=== PATIENT | female | born 1985 | race African-American/Black ===

== ENCOUNTER 2018-03-13 18:11 | Inpatient (IN) ==
[2018-03-13 19:22] LABS: Basophils % 0.3 % (0.0-0.8); Eosinophils % 0.1 % (0.00-10.9); Hematocrit 34.7 VOL% (35.7-47.0); Immature Granulocytes % 0.3 %; Immature Granulocytes Absolute 0.04 #; Lymphocytes # 2.2 10*3/uL (1.4-4.0); Lymphocytes % 18.7 % (21.3-54.2); Mean Corpuscular HGB Conc 31.7 GM/DL (32-36); Mean Corpuscular Hemoglobin 28 PG (27-34); Mean Platelet Volume 9.7 FL (9.6-12.0); Monocytes # 0.8 10*3/uL (0.11-0.8); Monocytes % 6.8 % (1.7-12.7); Neutrophils # 8.5 10*3/uL (1.4-7.4); Neutrophils % 73.8 % (38.7-73.9); Platelet Count 578 T/CUMM (130-400); Red Blood Count 3.99 MC/CUMM (3.8-5.5); Red Cell Distribution Width 13.3 % (9.3-17.3); White Blood Count 11.5 T/CUMM (4-12)
[2018-03-13 19:40] LABS: Alanine Aminotransferase < 9 U/L (13-56); Albumin 3.1 G/DL (3.4-5.0); Alkaline Phosphatase 92 U/L (45-117); Aspartate Amino Transferase 14 U/L (0-37); Blood Urea Nitrogen 6 MG/DL (7-18); Calcium 8.8 MG/DL (8.5-10.1); Glucose 98 MG/DL (74-106); Osmolality,Calculated 272.7 MOS/KG (273-304); Potassium 3.2 MMOL/L (3.5-5.1); Sodium 138 MMOL/L (136-145); Total Protein 7.8 G/DL (6.4-8.3)
[2018-03-13] MEDS ORDERED: ONDANSETRON 4 MG/2 ML VIAL IV PRN (20:01)
[2018-03-13] MEDS: LACTATED RINGERS 1,000 ML IV SCH (20:05)
[2018-03-13] MEDS ORDERED: hydrALAZINE 20 MG/1 ML VIAL IV ONE ×2 (20:05→20:16)
[2018-03-13] MEDS ORDERED: ACETAMINOPHEN/CODEINE 300-30 MG TABLET PO PRN (20:07)
[2018-03-13] MEDS ORDERED: IBUPROFEN 800 MG TABLET PO PRN (20:09)
[2018-03-13] MEDS: ACETAMINOPHEN/CODEINE 300-30 MG TABLET PO PRN (20:24)
[2018-03-13] MEDS: MEPERIDINE 50 MG/1 ML VIAL IV PRN (21:18)
[2018-03-14] MEDS: CLINDAMYCIN INJ 600 MG in PREMIX 1 EACH IV SCH ×3 (01:04→16:06)
[2018-03-14] MEDS: GENTAMICIN INJ 200 MG in SODIUM CHLORIDE 0.9% 100 ML IV SCH ×3 (01:45→17:06)
[2018-03-14] MEDS: LACTATED RINGERS 1,000 ML IV SCH ×3 (04:12→21:06)
[2018-03-14 05:36] LABS: Apearance,Urine CLEAR (Clear); Bilirubin,Urine Negative (Negative); Blood, Urine Negative (Negative); Glucose,Urine (UA) Negative (Negative); Hyaline Casts,Urine 1 /LPF (0-3); Ketones,Urine 20 mg/dL (Negative); Mucus,Urine Occasional /LPF (Occasional); Nitrite,Urine Negative (Negative); Protein,Urine Negative; RBC,Urine 1 /HPF (0-4); Renal Epithelial Cells,Urine Occasional /HPF (<1); Squamous Epithelial Cell,Urine Occasional /HPF (0-10); Urine Color Yellow (Yellow); Urine Specific Gravity 1.014 (1.001-1.035); WBC,Urine 4 /HPF (0-6)
[2018-03-14] MEDS: MEPERIDINE 50 MG/1 ML VIAL IV PRN ×2 (08:44→21:05)
[2018-03-15] MEDS: CLINDAMYCIN INJ 600 MG in PREMIX 1 EACH IV SCH ×2 (01:53→10:43)
[2018-03-15] MEDS: ACETAMINOPHEN/CODEINE 300-30 MG TABLET PO PRN (02:50)
[2018-03-15] MEDS: GENTAMICIN INJ 200 MG in SODIUM CHLORIDE 0.9% 100 ML IV SCH (02:53)
[2018-03-15] MEDS: LACTATED RINGERS 1,000 ML IV SCH (04:35)
[2018-03-15 11:58] VITALS: BP 116/83
== END 2018-03-15 11:48 | disposition home or self-care (01) | DRG 776 ==
LOC: N.3E
PROVIDERS: ADMIT Obstetrics & Gynecology; ATTEND Obstetrics & Gynecology